=== PATIENT | male | born 1935 | race African-American/Black ===

== ENCOUNTER 2016-10-19 20:58 | Emergency (ER) | payer MEDICARE, OTHER ==
[~2016-10-19] VITALS: Ht 177.8 cm; Wt 87.0 kg
[2016-10-19 22:45] VITALS: BP 130/71
[2016-10-19 23:11] LABS: BASOPHILS % 0.5 % (0.0-2.0); DIFFERENTIAL COMMENT 0; EOSINOPHILS % 0.4 % (0.0-5.0); HEMATOCRIT. 37.9 % (42.0-52.0); HEMOGLOBIN. 11.9 g/dL (14.0-18.0); LYMPHOCYTES % 21.4 % (20.0-50.0); MEAN CORPUSCULAR HEMOGLOBIN 24.9 pg (28.0-32.0); MEAN CORPUSCULAR HGB CONC 31.5 g/dL (31.0-37.0); MEAN CORPUSCULAR VOLUME 79.1 fL (80.0-94.0); MEAN PLATELET VOLUME 7.9 fl (7.4-10.4); MONOCYTES % 4.7 % (2.0-8.0); PLATELET 211 x1000/uL (130-400); RED BLOOD CELL COUNT 4.79 mill/uL (4.7-6.1); RED CELL DISTRIBUTION WIDTH 13.5 % (11.6-14.6); WHITE BLOOD COUNT 6.6 x1000/uL (4.5-11.0)
[2016-10-19 23:17] LABS: CHLORIDE 100 mEq/L (98-107)
[2016-10-19 23:18] LABS: INDEX HEMOLYSI 1 (1-3); INDEX ICTERIC 1 (1-4); INDEX LIPEMIC 1 (1-3)
[2016-10-19 23:22] LABS: ALBUMIN 3.8 g/dL (3.4-5.0); ANION GAP 16; CALCIUM 9.2 mg/dL (8.5-10.1); CARBON DIOXIDE 28 mEq/L (21-32); UREA NITROGEN BLOOD 32 mg/dL (7-21)
[2016-10-19 23:24] LABS: ALANINE AMINOTRANSFERASE 37 IU/L (13-61); eGFR 59 mL/min (>60)
== END 2016-10-20 01:34 | disposition home or self-care (01) ==
LOC: ER 20:59
DX: T38.3X5A Adverse effect of insulin and oral hypoglycemic [antidiabetic] drugs, initial encounter (principal); E11.641 Type 2 diabetes mellitus with hypoglycemia with coma; Y92.89 Other specified places as the place of occurrence of the external cause
CPT/HCPCS: 36415; 80053; 82962; 85025; 99284